=== PATIENT | male | born 1955 ===

== ENCOUNTER 2020-11-30 06:07 | Day surgery (SDC) | payer MEDICARE, BC ==
[~2020-11-30] VITALS: Ht 177.8 cm; Wt 110.0 kg
[~2020-11-30 06:07] MED LIST: DONA750 MG PO; IBUP200 PO; LISI20 PO; MOBIC15 MG PO
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
== END 2020-11-30 08:22 | disposition home or self-care (01) ==
LOC: ORSCSDS 06:07
PROVIDERS: Orthopaedic Surgery
PROC: 01N50ZZ Release Median Nerve, Open Approach (ICD-10-PCS; principal; 2020-11-30 07:30)
DX: G56.01 Carpal tunnel syndrome, right upper limb (principal); I10 Essential (primary) hypertension; E66.9 Obesity, unspecified; Z68.34 Body mass index [BMI] 34.0-34.9, adult; Z79.899 Other long term (current) drug therapy
CPT/HCPCS: J0690; J2250; J2704; J7120